=== PATIENT | female | born 1990 | race African-American/Black ===

== ENCOUNTER 2018-11-30 18:13 | Outpatient (CLI) | payer MEDICAID | END 2018-11-30 18:14 | disposition critical access hospital (66) | LOC: EMS 18:13 | PROVIDERS: ATTEND Surgery | DX: R22.1 Localized swelling, mass and lump, neck (principal) | CPT/HCPCS: A0425; A0427; A0999 ==

== ENCOUNTER 2018-11-30 18:25 | Emergency (ER) | payer MEDICAID ==
--- NOTE | 2018-11-30 19:02 | ED Physician Documentation ---
PD HPI SKIN - Stated complaint Stated Complaint: ALLERGIC REACTION - Chief complaint Chief Complaint: Allergic Rx - History obtained from History obtained from: Patient - History of Present Illness Timing - onset: How many hours ago (1), Today Timing - details: Abrupt onset, Now resolved (she states the itching, and feeling of throat swelling went away with epi shots.) Location: Face, Bodywide, Other (throat) Quality / character: Itchy, Swelling (lips and throat) Improved by: Epi Associated symptoms: Facial swelling. No: Fever, Myalgias, N/V/D Contributing factors: Exposed to food (she is allergic to peanuts and ate a dessert that had some in it, without the patient being aware of it. Patient started to have swelling and tingling of lips and throat almost immediately (within just 2-3 bites of the food). She gave herself epi pen injection, with only mild improvement, so gave a second dose.) Similar symptoms before: Diagnosis (severe peanut allergy.) Review of Systems Constitutional: denies: Fever Nose: denies: Rhinorrhea / runny nose, Congestion Throat: reports: Oral lesions / sores (feeling of swelling and tingling.). d enies: Sore throat Respiratory: reports: Dyspnea. denies: Cough PD PAST MEDICAL HISTORY - Past Medical History Cardiovascular: None Respiratory: None Neuro: None Endocrine/Autoimmune: None - Present Medications Home Medications: Ambulatory Orders Medication Instructions Recorded Confirmed Albuterol Sulf [Ventolin Hfa 1 - 2 puffs INH Q4HR PRN 11/30/18 11/30/18 Inhaler] EPINEPHrine [Epinephrine] 0.3 mg IJ ONCE PRN #2 auto.injct 11/30/18 - Allergies Allergies/Adverse Reactions: Allergies Allergy/AdvReac Type Severity Reaction Status Date / Time metoclopramide [From Reglan] Allergy Rash Verified 11/30/18 18:34 peanut Allergy Anaphylaxis Verified 11/30/18 18:33 prochlorperazine Allergy Rash Verified 11/30/18 18:34 [From Compazine] sumatriptan [From Imitrex] Allergy Rash Verified 11/30/18 18:34 PD ED PE NORMAL - Vitals Vital signs reviewed: Yes - General General: Alert and oriented X 3, No acute distress, Well developed/nourished - HEENT HEENT: Moist mucous membranes, Pharynx benign - Neck Neck: Supple, no meningeal sign, No adenopathy - Cardiac Cardiac: RRR, No murmur - Respiratory Respiratory: Clear bilaterally - Abdomen Abdomen: Soft, Non tender - Derm Derm: Normal color, Warm and dry, No rash - Extremities Extremities: No edema, No calf tenderness / cord - Neuro Neuro: Alert and oriented X 3, No motor deficit, Normal speech Results - Vitals Vitals: Oxygen O2 Source Room air PD MEDICAL DECISION MAKING - ED course Complexity details: re-evaluated patient (she was having slight return of feeling lips swelling and tingling. Given IM dose of Epi in ED with improvement again. Then wateched anouth couple of hours and remained feeling okay, which at that point is about 4 hours post ingestion. ), considered differential, d/w patient Departure - Departure Disposition: 01 Home, Self Care Clinical Impression: Anaphylactic reaction Qualifiers: Encounter type: initial encounter Qualified Code(s): T78.2XXA - Anaphylactic sh ock, unspecified, initial encounter Condition: Stable Record reviewed to determine appropriate education?: Yes Instructions: ED Allergic React Food Follow-Up: Danielle Naik MD [Primary Care Provider] - Prescriptions: EPINEPHrine [Epinephrine] 0.3 mg IJ ONCE PRN #2 auto.injct PRN Reason: Anaphylaxis Comments: Rest at home and stay cool. Drink lots of fluids. Use Benadryl every 6 hours if needed for mild itching or swelling. Return if significant symptoms again. Carry your EpiPen with you as you previously have for potential further reactions. Recheck if not fully resolved of all your symptoms over the next day or 2. Discharge Date/Time: 11/30/18 21:51
[2018-11-30] MEDS ORDERED: EPINEPHrine 1 MG/ML AMP IM STA (19:14)
[2018-11-30] MEDS ORDERED: diphenhydrAMINE INJ 50 MG/ML VIAL IVP STA (19:15)
[2018-11-30] MEDS ORDERED: CETIRIZINE 10 MG TABLET PO STA (19:15)
[2018-11-30] MEDS ORDERED: DEXAMETHASONE 10 MG/ML VIAL IVP STA (19:15)
[2018-11-30 21:57] VITALS: BP 123/72
== END 2018-11-30 21:51 | disposition home or self-care (01) ==
LOC: ED 18:25
DX: T78.01XA Anaphylactic reaction due to peanuts, initial encounter (principal); X58.XXXA Exposure to other specified factors, initial encounter
CPT/HCPCS: 96372; 96374; 96375; 99283; 99284; A9270; J1200